=== PATIENT | male | born 2000 ===

== ENCOUNTER 2021-10-21 20:07 | Emergency (ER) | payer SELFPAY ==
[2021-10-21 23:02] LABS: C. TRACHOMATIS BY PCR DETECTED; N. GONORRHOEAE BY PCR NOT DETECTED
== END 2021-10-21 21:38 | disposition home or self-care (01) ==
LOC: MW.ED 20:07
DX: I10 Essential (primary) hypertension (principal); R20.2 Paresthesia of skin
CPT/HCPCS: 81001; 87086; 87491; 87591; 99283; 99284